=== PATIENT | male | born 1995 | race Caucasian/White ===

== ENCOUNTER 2017-06-03 09:54 | Emergency (ER) | payer SELFPAY ==
[~2017-06-03] VITALS: Ht 185.4 cm; Wt 68.0 kg
--- NOTE | 2017-06-03 10:37 | Diagnostic Imaging Report ---
INDICATION: Fall. Pain. COMPARISON: None. FINDINGS: Three views of the right wrist are obtained. No acute fracture, malalignment, or osseous destructive process is seen. Osseous density distal to the ulnar styloid does not appear acute. Mild deformity of the distal radius in the lateral view may be related to an old healed fracture. IMPRESSION: No acute abnormality is demonstrated. Dictated by: Dictated on workstation # [id number]
--- NOTE | 2017-06-03 10:44 | ED Upper Extremity ---
General Chief Complaint: Upper Extremity Stated Complaint: RT HAND INJ Nursing Triage Note: ARRIVED VIA AMB TO ROOM 07. STATES HE FELL LAST NIGHT HURTING HIS RIGHT WRIST. STATES HE HAS BROKEN HIS WRIST BEFORE AND THINKS IT IS BROKE AGAIN. Nursing Sepsis Screen: No Definite Risk Source: patient Exam Limitations: no limitations History of Present Illness Time seen by provider: 10:15 Initial Comments This 21-year-old gentleman presents to the emergency room with right wrist injury. Patient fell yesterday and landed on outstretched wrist. He now has pain and limited range of motion as well as mild swelling in the right wrist. He denies any other injury. He has had a prior fracture to that wrist and states this pain feels similar. Allergies and Home Medications Allergies Coded Allergies: No Known Drug Allergies (Unverified , 06/03/17) Home Medications No Active Prescriptions or Reported Meds Constitutional: no symptoms reported EENTM: no symptoms reported Respiratory: no symptoms reported Cardiovascular: no symptoms reported Gastrointestinal: no symptoms reported Genitourinary: no symptoms reported Musculoskeletal: see HPI Skin: no symptoms reported Psychiatric/Neurological: No Symptoms Reported Past Ussekaz-Hslfvt-Xkjncz Hx Patient Social History Alcohol Use: Denies Use Recreational Drug Use: No Smoking Status: Current Everyday Smoker Recent Foreign Travel: No Contact w/Someone Who Travel: No Recent Infectious Disease Expo: No Recent Hopitalizations: No Surgeries History of Surgeries: No Respiratory History of Respiratory Disorde: No Cardiovascular History of Cardiac Disorders: No Neurological History of Neurological Disord: No Genitourinary History of Genitourinary Disor: No Gastrointestinal History of Gastrointestinal Di: No Musculoskeletal History of Musculoskeletal Dis: No Endocrine History of Endocrine Disorders: No HEENT History of HEENT Disorders: No Cancer History of Cancer: No Psychosocial History of Psychiatric Problem: No Integumentary History of Skin or Integumenta: No Physical Exam Vital Signs Vital Sign - Last 12Hours 06/03/17 09:59 Temp 98.0 Pulse 74 Resp 18 B/P (MAP) 109/77 (88) Pulse Ox 99 Capillary Refill : Less Than 3 Seconds General Appearance: WD/WN, no apparent distress HEENT: normal ENT inspection Respiratory: no respiratory distress Elbow/Forearm: normal inspection, non-tender, no evidence of injury, normal ROM , Right Wrist: Yes normal ROM, Yes bone tenderness, Yes limited ROM, Yes swelling Hand: normal inspection, non-tender, no evidence of injury, normal ROM Neurologic/Psychiatric: risk control director II-XII nml as tested, no motor/sensory deficits, alert, normal mood/affect, oriented x 3 Skin: normal color, warm/dry Progress/Results/Core Measures Results/Orders My Orders Orders - IRISH MEHTA MD Wrist, Right, 3 Views Or More (06/03/17 10:19) Vital Signs/I&O Vital Sign - Last 12Hours 06/03/17 09:59 Temp 98.0 Pulse 74 Resp 18 B/P (MAP) 109/77 (88) Pulse Ox 99 Blood Pressure Mean: 88 Progress Note : Progress Note X-ray was negative for fracture. See discharge instructions. Diagnostic Imaging Diagonstic Imaging: Xray Comments Wrist x-ray viewed by me and report reviewed. See report below: NAME: CLAUDINE SMITH MED REC#: [id number] PT STATUS: REG ER : 1995 PHYSICIAN: IRISH MEHTA MD ADMIT DATE: 06/03/17/ER Signed Date of Exam: 06/03/17 WRIST, RIGHT, 3 VIEWS OR MORE INDICATION: Fall. Pain. COMPARISON: None. FINDINGS: Three views of the right wrist are obtained. No acute fracture, malalignment, or osseous destructive process is seen. Osseous density distal to the ulnar styloid does not appear acute. Mild deformity of the distal radius in the lateral view may be related to an old healed fracture. IMPRESSION: No acute abnormality is demonstrated. Dictated by: Dictated on workstation # [id number] Dict: 06/03/17 1031 Trans: 06/03/17 1045 Interpreted by: SHANE FUENTES DO Electronically signed by: SHANE FUENTES DO 06/03/17 1045 Departure Impression Impression: Primary Impression: Right wrist sprain Qualified Codes: S63.501A - Unspecified sprain of right wrist, initial encounter Disposition: HOME, SELF-CARE Condition: Stable Departure-Patient Inst. Decision time for Depature: 10:45 Referrals: NO,LOCAL PHYSICIAN (PCP/Family) Primary Care Physician Patient Instructions: Wrist Sprain (DC) Add. Discharge Instructions: You may treat your pain with ibuprofen up to 600 mg every 6 hours as needed. Add Tylenol (acetaminophen) up to 1000 mg every 6 hours as needed for pain not controlled by ibuprofen. You may use a splint purchased [id number] for support. Gradually increase level of activity as tolerated. Return to your primary care provider if not improving as expected. Rest, icing in 20 minute intervals, and elevation may also be helpful in reducing pain and swelling. All discharge instructions reviewed with patient and/or family. Voiced understanding. Scripts No Active Prescriptions or Reported Meds IRISH MEHTA MD Jun 03, 2017 10:44
[2017-06-03 11:01] VITALS: BP 109/77
== END 2017-06-03 11:01 | disposition home or self-care (01) ==
LOC: ER 09:58
DX: S63.501A Unspecified sprain of right wrist, initial encounter (principal); F17.200 Nicotine dependence, unspecified, uncomplicated; W18.30XA Fall on same level, unspecified, initial encounter
CPT/HCPCS: 73110; 99282

== ENCOUNTER 2017-10-04 18:30 | Inpatient (IN) | payer SELFPAY ==
[~2017-10-04] VITALS: Ht 185.4 cm; Wt 70.8 kg
[2017-10-04] MEDS ORDERED: NS IV 1000 ML 1,000 ML IV ONE (18:34)
[2017-10-04] MEDS ORDERED: ACTIVATED CHARCOAL/SORBITOL 50 G/240 ML BTL PO ONE (18:45)
[2017-10-04] MEDS ORDERED: ACETYLCYSTEINE (ACETADOTE) IV 6000 MG/30 ML VIAL INJ SCH (18:45)
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
[2017-10-04 18:56] LABS: BASOPHILS % (AUTO) 0 % (0-10); EOSINOPHILS # (AUTO) 0.1 10^3/uL (0.0-0.3); EOSINOPHILS % (AUTO) 2 % (0-10); HEMATOCRIT 44 % (40-54); HEMOGLOBIN 15.2 G/DL (13.3-17.7); LYMPHOCYTES # (AUTO) 1.9 X 10^3 (1.0-4.0); LYMPHOCYTES % (AUTO) 29 % (12-44); MEAN CORPUSCULAR HEMOGLOBIN 31 PG (25-34); MEAN CORPUSCULAR HGB CONC 35 G/DL (32-36); MEAN CORPUSCULAR VOLUME 88 FL (80-99); MEAN PLATELET VOLUME 9.8 FL (7.4-10.4); MONOCYTES # (AUTO) 0.8 X 10^3 (0.0-1.0); MONOCYTES % (AUTO) 11 % (0-12); NEUTROPHILS # (AUTO) 3.9 X 10^3 (1.8-7.8); NEUTROPHILS % (AUTO) 58 % (42-75); PLATELET COUNT 288 10^3/uL (130-400); RED BLOOD COUNT 4.98 10^6/uL (4.35-5.85); RED CELL DISTRIBUTION WIDTH 12.9 % (10.0-14.5); WHITE BLOOD COUNT 6.7 10^3/uL (4.3-11.0)
[2017-10-04 18:56] LABS: BILIRUBIN,URINE NEGATIVE (NEGATIVE); CLARITY,URINE CLEAR; COLOR,URINE YELLOW; GLUCOSE, URINE (UA) NEGATIVE (NEGATIVE); KETONES,URINE NEGATIVE (NEGATIVE); LEUKOCYTE ESTERASE ,URINE 1+ (NEGATIVE); NITRITE,URINE NEGATIVE (NEGATIVE); PH,URINE 6 (5-9); PROTEIN,URINE 2+ (NEGATIVE); UROBILINOGEN,URINE NORMAL (NORMAL)
[2017-10-04] MEDS ORDERED: D5W IV SOLUTION (EXCEL) 250 ML IV ONE (19:02)
[2017-10-04 19:07] LABS: BACTERIA,URINE NEGATIVE /HPF; WBC,URINE RARE /HPF
[2017-10-04 19:07] LABS: INR 1.1 (0.8-1.4); PROTHROMBIN TIME PATIENT 14.2 SEC (12.2-14.7)
[2017-10-04 19:16] LABS: AMPHETAMINE SCREEN, URINE NEGATIVE (NEGATIVE); BARBITURATE SCREEN URINE NEGATIVE (NEGATIVE); BENZODIAZEPINES SCREEN URINE NEGATIVE (NEGATIVE); CANNABINOID SCREEN, URINE POSITIVE (NEGATIVE); COCAINE SCREEN URINE NEGATIVE (NEGATIVE); METHADONE STAT NEGATIVE (NEGATIVE); METHAMPHETAMINE SCREEN URINE S NEGATIVE (NEGATIVE); OPIATE SCREEN URINE NEGATIVE (NEGATIVE); OXYCODONE STAT NEGATIVE (NEGATIVE); PROPOXYPHENE STAT NEGATIVE (NEGATIVE); TRICYCLIC ANTIDEPRESSANTS SCRE NEGATIVE (NEGATIVE)
[2017-10-04 19:17] LABS: ALANINE AMINOTRANSFERASE 23 U/L (0-55); ALBUMIN 4.5 GM/DL (3.2-4.5); ALKALINE PHOSPHATASE 84 U/L (40-136); BILIRUBIN,TOTAL 0.5 MG/DL (0.1-1.0); BUN/CREATININE RATIO 17; CALCIUM 8.9 MG/DL (8.5-10.1); CARBON DIOXIDE 22 MMOL/L (21-32); CHLORIDE 108 MMOL/L (98-107); CREATININE SERUM 0.81 MG/DL (0.60-1.30); GFR ESTIMATED > 60; GLUCOSE 94 MG/DL (70-105); MAGNESIUM 2.1 MG/DL (1.8-2.4); POTASSIUM 4.1 MMOL/L (3.6-5.0); SALICYLATE < 5.0 MG/DL (5.0-20.0); SODIUM 139 MMOL/L (135-145); TOTAL PROTEIN 6.7 GM/DL (6.4-8.2)
[2017-10-04 19:23] LABS: ACETAMINOPHEN 42 UG/ML (10-30)
[2017-10-04 19:37] LABS: TSH (THYROID ANALYZER) 1.22 UIU/ML (0.35-4.94)
[2017-10-04 20:11] LABS: ABG BASE EXCESS -2.6 MMOL/L (-2.5-2.5); ABG OXYGEN SATURATION 96 % (94-100); ABG PCO2 42 MMHG (35-45); ABG PO2 79 MMHG (79-93); ABG TCO2 23.5 MMOL/L (21.0-31.0)
[2017-10-04 20:14] LABS: ABG PH 7.34 (7.37-7.43); ALLENS TEST POSITIVE
[2017-10-04 20:15] LABS: INSPIRED O2 ROOM AIR; PATIENT TEMP 98.7; VENTILATOR NO
[2017-10-04 20:25] VITALS: BP 153/80
[2017-10-04] MEDS ORDERED: ONDANSETRON 4 MG/2 ML (SDV) Z0FRAN IV PRN (21:45)
[2017-10-04 22:00] VITALS: BP 130/92
[2017-10-04 23:00] VITALS: BP 106/76
[2017-10-05] VITALS (16 sets, daily range): BP systolic 96–133; BP diastolic 57–83
[2017-10-05 04:20] LABS: BASOPHILS % (AUTO) 0 % (0-10); EOSINOPHILS # (AUTO) 0.1 10^3/uL (0.0-0.3); EOSINOPHILS % (AUTO) 1 % (0-10); HEMATOCRIT 43 % (40-54); HEMOGLOBIN 14.8 G/DL (13.3-17.7); LYMPHOCYTES # (AUTO) 2.6 X 10^3 (1.0-4.0); LYMPHOCYTES % (AUTO) 28 % (12-44); MEAN CORPUSCULAR HEMOGLOBIN 30 PG (25-34); MEAN CORPUSCULAR HGB CONC 34 G/DL (32-36); MEAN CORPUSCULAR VOLUME 88 FL (80-99); MEAN PLATELET VOLUME 10.1 FL (7.4-10.4); MONOCYTES # (AUTO) 0.9 X 10^3 (0.0-1.0); MONOCYTES % (AUTO) 10 % (0-12); NEUTROPHILS # (AUTO) 5.4 X 10^3 (1.8-7.8); NEUTROPHILS % (AUTO) 60 % (42-75); PLATELET COUNT 262 10^3/uL (130-400); RED BLOOD COUNT 4.92 10^6/uL (4.35-5.85); RED CELL DISTRIBUTION WIDTH 12.6 % (10.0-14.5)
[2017-10-05 04:30] LABS: ACETAMINOPHEN < 10 UG/ML (10-30); BUN/CREATININE RATIO 13; CARBON DIOXIDE 23 MMOL/L (21-32); CHLORIDE 110 MMOL/L (98-107); CREATININE SERUM 0.72 MG/DL (0.60-1.30); GFR ESTIMATED > 60; GLUCOSE 80 MG/DL (70-105); MAGNESIUM 2.3 MG/DL (1.8-2.4); PHOSPHORUS 3.6 MG/DL (2.3-4.7); POTASSIUM 3.7 MMOL/L (3.6-5.0); SODIUM 141 MMOL/L (135-145)
[2017-10-05] MEDS ORDERED: POTASSIUM CL 10MEQ/50ML IVPB 50 ML IV SCH (06:00)
[2017-10-05] MEDS ORDERED: MAGNESIUM 1 GM/100 ML IVPB 100 ML IV SCH (06:00)
[2017-10-05] MEDS ORDERED: KCL 20 MEQ TAB (K-DUR) PO SCH (06:00)
--- NOTE | 2017-10-05 07:53 | Diagnostic Imaging Report ---
INDICATION: Dyspnea. 0225 hours COMPARISON: No previous study is available for comparison at this time. FINDINGS: Heart size and pulmonary vasculature are within normal limits, and the lungs are clear, bilaterally. IMPRESSION: Unremarkable chest. Dictated by: Dictated on workstation # [id number]
[2017-10-05 12:28] LABS: ALANINE AMINOTRANSFERASE 23 U/L (0-55); ALBUMIN 4.3 GM/DL (3.2-4.5); ALKALINE PHOSPHATASE 77 U/L (40-136); BILIRUBIN,TOTAL 0.8 MG/DL (0.1-1.0); BUN/CREATININE RATIO 9; CALCIUM 9.5 MG/DL (8.5-10.1); CARBON DIOXIDE 27 MMOL/L (21-32); CHLORIDE 107 MMOL/L (98-107); CREATININE SERUM 0.75 MG/DL (0.60-1.30); GFR ESTIMATED > 60; GLUCOSE 90 MG/DL (70-105); POTASSIUM 4.3 MMOL/L (3.6-5.0); SODIUM 138 MMOL/L (135-145); TOTAL PROTEIN 6.4 GM/DL (6.4-8.2)
--- NOTE | 2017-10-05 14:44 | History & Physical-Hospitalist ---
History of Present Illness HPI/Chief Complaint The patient is a 21-year-old white male who presented to the emergency room yesterday after having been caught by his family overdosing on Tylenol. He reported that he had just had enough and wished to enter the internal sleep. He has previously attempted suicide by hanging. The rope broke on that attempt. Date Seen 10/05/17 Time Seen by Provider: 14:40 Attending Physician Angela Reed MD PCP No,Local Physician Referring Physician Date of Admission October 04, 2017 at 19:35 Home Medications & Allergies Home Medications Reviewed patient Home Medication Reconciliation performed by pharmacy medication reconciliations microbiology quality control technician and/or nursing. Patients Allergies have been reviewed. Allergies Allergies Coded Allergies No Known Drug Allergies (Unverified06/03/17) Past Eziytcu-Nkqgfx-Bqiksd Hx Past Med/Social Hx: Reviewed Nursing Past Med/Soc Hx Patient Social History Alcohol Use: Regular Use Number of Drinks Today: 0 Alcohol Beverage of Choice: Beer Recreational Drug Use: Yes (THC, METHAMPHETAMINES, OPIATES--DENIES IV DRUG USE) Drug of Choice: THC, METHAMPHETAMINES, OPIATES Smoking Status: Current Everyday Smoker Type Used: Cigarettes Physical Abuse Screen: No Sexual Abuse: No Recent Foreign Travel: No Contact w/other who traveled: No Recent Hopitalizations: No Recent Infectious Disease Expo: No Immunizations Up To Date Pediatric: No Seasonal Allergies Seasonal Allergies: No Past Medical History Currently Using CPAP: No Currently Using BIPAP: No Sexually Transmitted Disease: No HIV/AIDS: No Did You Recieve Any Treatments: No Psychosocial: ADD/ADHD, Anxiety, PTSD, Suicide Attempts History of Blood Disorders: No Adverse Reaction to Blood Young: No Review of Systems Constitutional: see HPI EENTM: no symptoms reported Respiratory: no symptoms reported Cardiovascular: no symptoms reported Gastrointestinal: no symptoms reported Genitourinary: no symptoms reported Musculoskeletal: no symptoms reported Skin: no symptoms reported Psychiatric/Neurological: See HPI Physical Exam Physical Exam Vital Signs Vital Signs - First Documented 10/04/17 10/04/17 19:40 20:25 Temp 98.8 Pulse 92 Resp 14 B/P (MAP) 132/68 (89) Pulse Ox 98 O2 Delivery Room Air Capillary Refill : Less Than 3 Seconds General Appearance: No Apparent Distress, WD/WN, Other (numerous tattoos) Eyes: Bilateral Eye Normal Inspection HEENT: Normal ENT Inspection Neck: Full Range of Motion, Normal Inspection, Non Tender, Supple, Carotid Bruit Respiratory: Chest Non Tender, Lungs Clear, Normal Breath Sounds, No Accessory Muscle Use, No Respiratory Distress Cardiovascular: Regular Rate, Rhythm, No Edema, No Gallop, No JVD, No Murmur, Normal Peripheral Pulses Gastrointestinal: Normal Bowel Sounds, No Organomegaly, No Pulsatile Mass, Non Tender, Soft Back: Normal Inspection, No CVA Tenderness, No Vertebral Tenderness Extremity: Normal Capillary Refill, Normal Inspection, Normal Range of Motion, Non Tender, No Calf Tenderness, No Pedal Edema Neurologic/Psychiatric: Alert, Oriented x3, No Motor/Sensory Deficits, Normal Mood/Affect Skin: Normal Color, Warm/Dry Lymphatic: No Adenopathy Results Results/Procedures Labs Laboratory Tests 10/04/17 18:41 10/05/17 03:43 10/05/17 11:59 Patient resulted labs reviewed. Assessment/Plan Admission Diagnosis Attempted suicide with acetaminophen Admission Status: Observation Assessment and Plan After initially stating that he was not interested in mental health therapy, he relented. He has been interviewed by mental health and has an arrangement for outpatient therapy beginning Thursday morning at 0900 Clinical Quality Measures DVT/VTE Risk/Contraindication: Risk Factor Score Per Nursin RFS Level Per Nursing on Admit: 1=Low/No VTE PPX WINSOME CUNNINGHAM MD October 05, 2017 14:44
--- NOTE | 2017-10-05 14:45 | Discharge Instructions ---
Discharge Instructions Patient Instructions Patient Instructions: Keep appointment at mental health scheduled for 0900 on 10/07 Activity & Diet Discharge Diet: No Restrictions WINSOME CUNNINGHAM MD October 05, 2017 14:45
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
--- NOTE | 2017-10-07 15:18 | Physician Query-Final Dx ---
SANNA HOWARD 10/07/17 1518: Final Diagnosis Give Final Diagnosis Please give Final Diagnosis ILANA PAPPAS 10/21/17 1506: SANNA HOWARD October 07, 2017 15:18 ILANA PAPPAS October 21, 2017 15:06
--- NOTE | 2017-10-21 14:24 | Short Stay Summary-Hospitalist ---
Short Stay Diagnosis D/C Date October 05, 2017 at 15:53 Suicide attempt/acetaminophen Clinical Quality Measures DVT/VTE Risk/Contraindication: Risk Factor Score Per Nursin RFS Level Per Nursing on Admit: 1=Low/No VTE PPX WINSOME CUNNINGHAM MD October 21, 2017 14:24
== END 2017-10-05 15:53 | disposition home or self-care (01) | DRG 918 ==
LOC: EDUNIT# 18:30 → ER 18:31 → ICU 19:35
PROVIDERS: ADMIT Family Medicine; ATTEND Family Medicine
PROC: 0D9670Z Drainage of Stomach with Drainage Device, Via Natural or Artificial Opening (ICD-10-PCS; principal; 2017-10-04)
DX: T39.1X2A Poisoning by 4-Aminophenol derivatives, intentional self-harm, initial encounter (principal); F10.10 Alcohol abuse, uncomplicated; F12.90 Cannabis use, unspecified, uncomplicated; F17.210 Nicotine dependence, cigarettes, uncomplicated; F90.9 Attention-deficit hyperactivity disorder, unspecified type; F41.9 Anxiety disorder, unspecified; F43.10 Post-traumatic stress disorder, unspecified
CPT/HCPCS: 36415; 71045; 80048; 80053; 80306; 80320; 80329; 81000; 82805; 83735; 84100; 84443; 85025; 85610; 85730; 87081; 93005; 93041; 96360

== ENCOUNTER → 2019-08-18 | Outpatient (CLI) | payer MEDICAID ==
[~2019-08-18] MED LIST: GADOBUTROL 10 MMOL/10 ML (GADAVIST) VIAL IV ONE
--- NOTE | 2019-08-18 09:54 | Diagnostic Imaging Report ---
PROCEDURE: MR imaging of the brain with and without contrast. TECHNIQUE: Multiplanar, multisequence MR imaging of the brain was performed with and without contrast. INDICATION: Left-sided hearing loss. No prior studies are available for comparison. The ventricles and sulci are within normal limits. The normal expected flow-voids within the carotid siphons are seen. No diffusion restriction is identified. No acute intra-axial or extra-axial hemorrhage is detected. No abnormal enhancement following contrast administration is identified. Corpus callosum is unremarkable. The sella and parasellar structures are unremarkable. Thin slice imaging through the IACs demonstrates the 7th and 8th nerve complexes to be unremarkable. The inner ear structures appear unremarkable. No definite cerebellopontine angle mass is detected. IMPRESSION: Unremarkable MRI of the brain with and without contrast. Dictated by: Dictated on workstation # [id number]
== END ==
LOC: RAD 08:31
PROVIDERS: ATTEND Otolaryngology Otolaryngology/Facial Plastic Surgery
DX: H91.92 Unspecified hearing loss, left ear (principal)
CPT/HCPCS: 70553

== ENCOUNTER 2020-09-06 13:26 | Emergency (ER) | payer MEDICAID ==
[~2020-09-06] VITALS: Ht 185.4 cm; Wt 65.9 kg
--- NOTE | 2020-09-06 13:59 | ED General ---
General Stated Complaint: R HAND LAC Source of Information: Patient Exam Limitations: No Limitations History of Present Illness Date Seen by Provider: Sep 06, 2020 Time Seen by Provider: 13:55 Initial Comments To ER with a laceration to the dorsal aspect of the right middle finger at the PIP joint and MCP joints after cleaning a fish tank. Tetanus is not up-to-date. Timing/Duration: 12-24 Hours, 1-2 Days Severity: Moderate Associated Systoms: Denies Symptoms Allergies and Home Medications Allergies Coded Allergies: No Known Drug Allergies (Unverified , 06/03/17) Home Medications No Active Prescriptions or Reported Meds Patient Home Medication List Home Medication List Reviewed: Yes Review of Systems Review of Systems Constitutional: see HPI EENTM: see HPI Respiratory: no symptoms reported Cardiovascular: no symptoms reported Genitourinary: no symptoms reported Musculoskeletal: no symptoms reported Skin: no symptoms reported Psychiatric/Neurological: No Symptoms Reported Hematologic/Lymphatic: No Symptoms Reported Immunological/Allergic: no symptoms reported Past Klpktfl-Bkpczd-Mrhahm Hx Patient Social History Alcohol Beverage of Choice: Beer Drug of Choice: THC, METHAMPHETAMINES, OPIATES Type Used: Cigarettes Recent Hopitalizations: No Immunizations Up To Date PED Vaccines UTD: No Seasonal Allergies Seasonal Allergies: No Past Medical History Surgeries: No Respiratory: No Currently Using CPAP: No Currently Using BIPAP: No Cardiac: No Neurological: No Sexually Transmitted Disease: No HIV/AIDS: No Genitourinary: No Gastrointestinal: No Musculoskeletal: No Endocrine: No HEENT: No Cancer: No Did You Recieve Any Treatments: No Psychosocial: Yes (TRIED TO HANG SELF AROUND AGE 19, OVERDOSED ON TYLENOL 10/04/17) ADD/ADHD, Anxiety, PTSD, Suicide Attempts Integumentary: No Blood Disorders: No Adverse Reaction/Blood Tranf: No Physical Exam Vital Signs Capillary Refill : Height, Weight, BMI Height: 6'1.00" Weight: 156lbs. 0.0oz. [id number]; 20.6 BMI Method:Stated General Appearance: No Apparent Distress, WD/WN Eyes: Bilateral Eye Normal Inspection, Bilateral Eye PERRL, Bilateral Eye EOMI Neck: Full Range of Motion, Normal Inspection Respiratory: Normal Breath Sounds, No Accessory Muscle Use, No Respiratory Distress Gastrointestinal: Normal Bowel Sounds, Non Tender, Soft Extremity: Normal Capillary Refill, Other (To the dorsal aspect of the right middle finger at the third digit PIP joint there is a 1 to 1.5 cm laceration with depth to subcutaneous tissue. There is a smaller 0.5 to 1 cm laceration over the dorsal aspect of the third MCP joint. He has full extension abilities of the middle finger. We will clean these up and place a dressing on them without closing them due to the delayed nature.) Neurologic/Psychiatric: Alert, Oriented x3 Skin: Normal Color, Warm/Dry Progress/Results/Core Measures Suspected Sepsis SIRS Temperature: Pulse: Respiratory Rate: Blood Pressure / Mean: Results/Orders My Orders Orders - LINDA ARZATE APRN Dipht,Pertuss(Acell),Tet Adult (Boostrix (09/06/20 14:00) Vital Signs/I&O Capillary Refill : Departure Impression Primary Impression: Finger laceration Disposition: 01 HOME, SELF-CARE Condition: Stable Departure-Patient Inst. Decision time for Depature: 13:58 Referrals: NO,LOCAL PHYSICIAN (PCP/Family) Primary Care Physician Patient Instructions: Wound Care Add. Discharge Instructions: 1. Leave this dressing on for about 48 hours. After this you may remove it by simply pulling on it, replace with a simple Band-Aid but you must wear the splint for about a week to keep this from tearing open when you bend your finger. Scripts Doxycycline Hyclate (Doxycycline Hyclate) 100 Mg Tablet 100 MG PO BID, #20 TAB 0 Refills Prov: LINDA ARZATE APRN 09/06/20 LINDA ARZATE APRN Sep 06, 2020 13:59
[2020-09-06] MEDS ORDERED: TETANUS,DIPTH,PERTUSS P/F (BOOSTRIX) 0.5 ML VIAL IM ONE (14:00)
[2020-09-06] MEDS ORDERED: DOXY100T2 PO (14:09)
[2020-09-06 14:11] VITALS: BP 135/82
== END 2020-09-06 14:11 | disposition home or self-care (01) ==
LOC: EDUNIT# 13:26 → ER 13:27
DX: S61.212A Laceration without foreign body of right middle finger without damage to nail, initial encounter (principal); Z23 Encounter for immunization; W45.8XXA Other foreign body or object entering through skin, initial encounter
CPT/HCPCS: 90715; 99284